=== PATIENT | female | born 1935 | race Asian ===

== ENCOUNTER 2021-01-15 13:07 | Outpatient (CLI) | payer MEDICARE, OTHER ==
--- NOTE | 2021-01-23 14:09 | Mammography Report ---
BILATERAL DIGITAL SCREENING MAMMOGRAM 3D/2D: 01/15/2021 CLINICAL: Routine screening. No prior exams were available for comparison. There are scattered fibroglandular elements in both br easts. There is an oval focal asymmetry with an obscured margin in the right breast at 6 o'clock anterior de pth. No other significant masses, calcifications, or other findings are seen in either breast. IMPRESSION: INCOMPLETE: NEEDS ADDITIONAL IMAGING EVALUATION The oval focal asymmetry in the right breast is indeterminate. Additional views with possible ultrasound are recommended. Comparison with prior mammograms would also be helpful if they become available. This exam was interpreted at Station ID: [id number]. NOTE: For mammograms, a report in lay terms will be sent to the patient. Approximately 15% of breast malignancies will not be visualized mammographically. In the management of a palpable breast mass, a negative mammogram must not discourage biopsy of a clinically suspicious lesion. Electronically Signed By: Rafael Lindsay M.D. slc/:01/22/2021 08:39:58 ACR BI-RADS Category 0: Incomplete 3340F PARENCHYMAL PATTERN: (A) - The breast(s) demonstrate(s) scattered fibroglandular densities. BI-RADS CATEGORY: (0) - 0 Mammo and [place] [id number] Immediate follow-up LATERALITY: (B)
== END 2021-01-15 13:08 | disposition home or self-care (01) ==
LOC: DI.N 13:07
DX: Z12.31 Encounter for screening mammogram for malignant neoplasm of breast (principal); N64.89 Other specified disorders of breast

== ENCOUNTER 2021-02-12 11:16 | Outpatient (CLI) | payer MEDICARE, OTHER ==
--- NOTE | 2021-02-13 13:30 | Ultrasound Report ---
LIMITED ULTRASOUND OF RIGHT BREAST: 02/12/2021 CLINICAL: Patient returns today to evaluate a focal asymmetry in the right breast. Comparison is made to exams dated: 02/12/2021 mammogram and 01/15/2021 mammogram - [facility]. Color flow ultrasound of the right breast 6-7 o'clock region was performed. Logan scale images of the real-time examination were reviewed. There is a benign 0.8 cm x 0.6 cm x 0.4 cm dilated duct in the right breast at 6 o'clock in the retro areolar region 4 cm from the nipple. This correlates with mammography findings. IMPRESSION: BENIGN There is no sonographic evidence of malignancy. The 0.8 cm x 0.6 cm x 0.4 cm dilated duct in the right breast is benign. A 1 year screening mammogram is recommended. This exam was interpreted at Station ID: [id number]. Electronically Signed By: Serge lyons/nilam:02/12/2021 12:47:03 Ultrasound BI-RADS: 2 Benign BI-RADS CATEGORY: (2) - 2 RECOMMENDATION: (ANNUAL) - Recommend routine annual screening mammography. [id number] 1 year screening LATERALITY: (B)
--- NOTE | 2021-02-13 13:30 | Mammography Report ---
UNILATERAL RIGHT DIGITAL DIAGNOSTIC MAMMOGRAM 3D/2D: 02/12/2021 CLINICAL: Patient returns today to evaluate a focal asymmetry in the right breast. Comparison is made to exam dated: 01/15/2021 mammogram - [facility]. The tissue of right breast is heterogeneously dense. This may lower the sensitivity of mammography. There is a 7 mm oval focal asymmetry with an obscured margin in the right breast at 6 o'clock anterio r depth. This is seen in additional views. No other significant masses or calcifications are seen in the breast. IMPRESSION: INCOMPLETE: NEEDS ADDITIONAL IMAGING EVALUATION The 7 mm oval focal asymmetry in the right breast is indeterminate. Targeted ultrasound is recommend ed for further evaluation, which will be performed immediately following this exam. This exam was interpreted at Station ID: [id number]. NOTE: For mammograms, a report in lay terms will be sent to the patient. Approximately 15% of breast malignancies will not be visualized mammographically. In the management of a palpable breast mass, a negative mammogram must not discourage biopsy of a clinically suspicious lesion. Electronically Signed By: Serge lyons/nilam:02/12/2021 12:45:21 ACR BI-RADS Category 0: Incomplete 3340F PARENCHYMAL PATTERN: (D) - The breast(s) demonstrate(s) heterogeneously dense fibroglandular adelia bah. BI-RADS CATEGORY: (0) - 0 Ultrasound [id number] Immediate follow-up LATERALITY: (R)
== END 2021-02-12 11:17 | disposition home or self-care (01) ==
LOC: DI 11:16
PROVIDERS: ATTEND Family Medicine
DX: N60.41 Mammary duct ectasia of right breast (principal)